=== PATIENT | male | born 1995 | race Caucasian/White ===

== ENCOUNTER 2022-07-26 16:53 | Emergency (ER) | payer MEDICAID, OTHER ==
[~2022-07-26] VITALS: Ht 182.9 cm; Wt 119.4 kg
[2022-07-26 16:53] VITALS: BP 143/69
== END 2022-07-26 19:48 | disposition home or self-care (01) ==
LOC: M ED 16:53
DX: F43.0 Acute stress reaction (principal); F32.A Depression, unspecified; F31.9 Bipolar disorder, unspecified; X78.1XXA Intentional self-harm by knife, initial encounter; Z88.8 Allergy status to other drugs, medicaments and biological substances; Y99.0 Civilian activity done for income or pay